=== PATIENT | male | born 1935 | race Caucasian/White ===

== ENCOUNTER 2017-10-13 10:12 | Emergency (ER) | payer MEDICARE, MEDICAID ==
[~2017-10-13] VITALS: Ht 5116.1 cm; Wt 86.0 kg
[~2017-10-13 10:12] MED LIST: ASPI-1009 PO; CARV3.12 PO; CELE-54 PO; FENO145T38 PO; FURO-150 PO; GLIM4TAB79 PO; OLME20TA21 PO; ROSU20TA PO; SITA1TAB6 PO
[2017-10-13] MEDS ORDERED: HYDR-3965 PO (11:05)
[2017-10-13 11:34] VITALS: BP 139/63
== END 2017-10-13 11:39 | disposition home or self-care (01) ==
LOC: ER 10:13
DX: S40.012A Contusion of left shoulder, initial encounter (principal); S29.9XXA Unspecified injury of thorax, initial encounter; E78.00 Pure hypercholesterolemia, unspecified; I10 Essential (primary) hypertension; E11.9 Type 2 diabetes mellitus without complications; Z98.890 Other specified postprocedural states; Z90.49 Acquired absence of other specified parts of digestive tract; Z85.9 Personal history of malignant neoplasm, unspecified; Z60.2 Problems related to living alone; Z79.82 Long term (current) use of aspirin; Z79.899 Other long term (current) drug therapy; W01.0XXA Fall on same level from slipping, tripping and stumbling without subsequent striking against object, initial encounter; Y93.89 Activity, other specified; Y92.89 Other specified places as the place of occurrence of the external cause; Y99.8 Other external cause status
CPT/HCPCS: 71045; 73030; 99284

== ENCOUNTER 2017-10-28 04:38 | Outpatient (CLI) | payer MEDICARE, MEDICAID ==
[~2017-10-28 04:38] MED LIST changes: +HYDR-3965 PO
== END 2017-10-28 23:59 | disposition home or self-care (01) ==
LOC: DIABETIC 04:38
PROVIDERS: ATTEND Specialist
DX: E11.65 Type 2 diabetes mellitus with hyperglycemia (principal); E11.22 Type 2 diabetes mellitus with diabetic chronic kidney disease; I13.0 Hypertensive heart and chronic kidney disease with heart failure and stage 1 through stage 4 chronic kidney disease, or unspecified chronic kidney disease; N18.9 Chronic kidney disease, unspecified; I50.9 Heart failure, unspecified; F17.200 Nicotine dependence, unspecified, uncomplicated; Z85.828 Personal history of other malignant neoplasm of skin
CPT/HCPCS: G0108

== ENCOUNTER 2017-12-01 01:57 | Outpatient (CLI) | payer MEDICARE, MEDICAID ==
[~2017-12-01 01:57] MED LIST changes: -HYDR-3965 PO; +OLME20TA14 PO; -OLME20TA21 PO
== END 2017-12-01 23:59 | disposition home or self-care (01) ==
LOC: DIABETIC 01:57
PROVIDERS: ATTEND Specialist
DX: E11.65 Type 2 diabetes mellitus with hyperglycemia (principal); E11.22 Type 2 diabetes mellitus with diabetic chronic kidney disease; I13.0 Hypertensive heart and chronic kidney disease with heart failure and stage 1 through stage 4 chronic kidney disease, or unspecified chronic kidney disease; N18.9 Chronic kidney disease, unspecified; I50.9 Heart failure, unspecified; Z87.891 Personal history of nicotine dependence; Z85.828 Personal history of other malignant neoplasm of skin
CPT/HCPCS: G0108

== ENCOUNTER 2018-02-05 12:14 | Emergency (ER) | payer MEDICARE, MEDICAID ==
[~2018-02-05] VITALS: Ht 154.9 cm; Wt 90.0 kg
[2018-02-05 12:30] VITALS: BP 151/90
== END 2018-02-05 13:19 | disposition home or self-care (01) ==
LOC: ER 12:15
DX: S80.12XA Contusion of left lower leg, initial encounter (principal); E78.00 Pure hypercholesterolemia, unspecified; I10 Essential (primary) hypertension; E11.9 Type 2 diabetes mellitus without complications; Z90.49 Acquired absence of other specified parts of digestive tract; Z89.202 Acquired absence of left upper limb, unspecified level; Z60.2 Problems related to living alone; Z79.82 Long term (current) use of aspirin; Z79.899 Other long term (current) drug therapy; W01.0XXA Fall on same level from slipping, tripping and stumbling without subsequent striking against object, initial encounter; Y93.89 Activity, other specified; Y92.89 Other specified places as the place of occurrence of the external cause; Y99.8 Other external cause status
CPT/HCPCS: 99284

== ENCOUNTER 2018-03-16 11:13 | Emergency (ER) | payer MEDICARE, MEDICAID ==
[~2018-03-16] VITALS: Ht 154.9 cm; Wt 74.0 kg
[2018-03-16] MEDS ORDERED: cephalexin 500mg capsule PO ONE (12:00)
[2018-03-16] MEDS ORDERED: CEPH500C5 PO (12:01)
[2018-03-16 12:08] VITALS: BP 132/70
== END 2018-03-16 12:09 | disposition home or self-care (01) ==
LOC: ER 11:13
DX: L03.116 Cellulitis of left lower limb (principal); E78.00 Pure hypercholesterolemia, unspecified; I10 Essential (primary) hypertension; E11.9 Type 2 diabetes mellitus without complications; Z90.49 Acquired absence of other specified parts of digestive tract; Z98.890 Other specified postprocedural states; Z60.2 Problems related to living alone; Z79.82 Long term (current) use of aspirin; Z79.899 Other long term (current) drug therapy
CPT/HCPCS: 99283